=== PATIENT | male | born 1970 | race African-American/Black ===

== ENCOUNTER 2017-08-27 21:24 | Inpatient (IN) | payer OTHER ==
[2017-08-27] MEDS ORDERED: SODIUM CHLORIDE 0.9% 500 ML INFUS.BAG IV ONE (23:08)
[2017-08-27] MEDS ORDERED: ONDANSETRON 4 MG/2 ML VIAL IVPB ONE (23:08)
[2017-08-27] MEDS ORDERED: SODIUM CHLORIDE 1,000 ML IV SCH (23:15)
--- NOTE | 2017-08-27 23:15 | PDOC ---
History of Present Illness - General Chief Complaint: Nasal Bleeding Stated Complaint: SOB/ VOMITTING BLOOD CLOTS Time Seen by Provider: 08/27/17 22:43 History Source: Patient Exam Limitations: No Limitations - History of Present Illness Initial Comments: 08/27/17 23:09 Patient is a 47-year-old male with history HTN, back surgery complaining of shortness of breath 5 days. States his SOB is mainly exceptional, - he gets winded and feels faint when he take a few steps. Also nose bleeding (+) clots x 3 days. Has body pain x 5 days, unable to get out of bed, nausea and some vomiting bloody. Patient states has some diarrhea but stool was dark brown, non bloody. Denies fever, chills, constipation, headache, nasal congestion. Denies any recent illness PMD: Dr. Maldonado PMHX: as above PSOCHX: neg drug, etoh, cig ALL: NKDA GENERAL/CONSTITUTIONAL: [No fever or chills. No weakness. No weight change.] HEAD, EYES, EARS, NOSE AND THROAT: [No change in vision. No ear pain or discharge. No sore throat, (+) nose bleeding] CARDIOVASCULAR: [No chest pain or shortness of breath.] RESPIRATORY: [No cough, wheezing, or hemoptysis.] GASTROINTESTINAL: [No nausea, vomiting, diarrhea or constipation. No rectal bleeding.] GENITOURINARY: [No dysuria, frequency, or change in urination.] MUSCULOSKELETAL: (+) joint or muscle pain. No neck or back pain.] SKIN AND BREASTS: [No rash or easy bruising.] NEUROLOGIC: [No headache, vertigo, loss of consciousness, or loss of sensation.] PSYCHIATRIC: [No depression or anxiety.] ENDOCRINE: [No increased thirst. No abnormal weight change.] HEMATOLOGIC/LYMPHATIC: [No anemia, easy bleeding, or history of blood clots.] ALLERGIC/IMMUNOLOGIC: [No hives or skin allergy. No latex allergy.] GENERAL: [The patient is awake, alert, and fully oriented, in no acute distress. ] HEAD: [Normal with no signs of trauma.] EYES: [Pupils equal, round and reactive to light, extraocular movements intact, sclera icteric, conjunctiva clear.] ENT: [Ears normal, nares patent, oropharynx clear without exudates. Moist mucous membranes.] NECK: [Normal range of motion, supple without lymphadenopathy, JVD, or masses.] LUNGS: [Breath sounds equal, clear to auscultation bilaterally. No wheezes, and no crackles.] HEART: [Regular rate and rhythm, normal S1 and S2 without murmur, rub.] ABDOMEN: [Soft, (+) tenderness in the right upper quad, normoactive bowel sounds. No guarding, no rebound. No masses.] EXTREMITIES: [Normal range of motion, no edema. No clubbing or cyanosis. No cords, erythema, or tenderness.] NEUROLOGICAL: [Cranial nerves II through XII grossly intact. Normal speech, normal gait.] PSYCH: [Normal mood, normal affect.] SKIN: (+) jaundiced, warm, Dry, normal turgor, no rashes or lesions noted.] Past History - Past Medical History Allergies/Adverse Reactions: Allergies Allergy/AdvReac Type Severity Reaction Status Date / Time No Known Allergies Allergy Verified 08/27/17 21:39 Home Medications: Ambulatory Orders NK [No Known Home Medication] 08/28/17 COPD: No HTN: Yes - Suicide/Smoking/Psychosocial Hx Smoking History: Never smoked Have you smoked in the past 12 months: No Information on smoking cessation initiated: No Hx Alcohol Use: No Drug/Substance Use Hx: No Substance Use Type: None *Physical Exam - Vital Signs Last Vital Signs Temp Pulse Resp BP Pulse Ox 99.6 F 98 H 20 124/60 98 08/27/17 21:40 08/27/17 21:40 08/27/17 21:40 08/27/17 21:40 08/27/17 21:40 ED Treatment Course - LABORATORY CBC & Chemistry Diagram: 08/28/17 03:19 08/28/17 01:29 - RADIOLOGY Radiology Studies Ordered: Category Date Time Status CHEST X-RAY PORTABLE* [RAD] Stat Radiology 08/27/17 23:07 Ordered Medical Decision Making - Medical Decision Making 08/27/17 23:22 Patient is a 47-year-old male with history back surgery complaining of shortness of breath 5 days. will get labs incl torp and bnp, hepatic panel cxr, reasses ekg SR rate 97, NAD, (-) ST-T wave changes cxr neg as read by me 08/28/17 02:00 Patient Full Name: ALYSE JONES Patient Accession No: [id number] Patient : 1970 Reason for Exam: RUQ PAIN Referring Physician: Patient Name: KAREN CULLEN THIS IS A PRELIMINARY REPORT FROM [facility] DATE OF SERVICE: 2017-08-28 01:01:42 IMAGES: 43 EXAM: Ultrasound abdomen limited, right upper quadrant and limited abdominal duplex HISTORY: Right upper quadrant pain COMPARISON: None. FINDINGS: Right upper quadrant ultrasound: 2.6 cm echogenic mass in the left hepatic lobe appears to represent a hemangioma. The liver is enlarged at 22.6 cm. There is no intrahepatic biliary duct dilation. Gallstone is noted with gallbladder wall thickening and pericholecystic fluid, highly suspicious for acute cholecystitis The CBD is not dilated and measures3 millimeters in diameter. Right kidney measures 11.6centimeters in length and is unremarkable. The visualized aorta and IVC are normal. Pancreas is partially obscured, but appears normal. Abdominal duplex: The main portal vein demonstrates normal hepatopedal flow. IMPRESSION: Hepatomegaly. Left hepatic lobe hemangioma. High suspicion for acute cholecystitis without biliary duct dilation. THIS DOCUMENT HAS BEEN ELECTRONICALLY SIGNED Chetan Simmons MD 08/28/2017 01:41 EST Myron. Please call Imaging Legal Editor [phone]) with questions. INTERPRETING RADIOLOGIST: Lukasz Simmons MD Electronically Signed: Aug 28, 2017 01:44AM EDT noted to have temp 103 blood cultures ordered by dr. Taylor and given Zosyn 3.375gm IV given 08/28/17 04:03 labs reviewed and noted platels 14, h/h 3.39/17 will transfused platelets and PRBC's, stool occult blood done and (+) protonix 80mg IV and drip at 8mg /hr Case d/w ICU recommend transfuse and tele monitoring. Case d/w with Dr. Taylor recommend ICU admit and heme consult Heme/onc consult called at [phone] 08/28/17 05:37 2nd called for heme/onc Dr. Honey Huitron 08/28/17 05:[address] Huitron agrees with plan thus far, will come to see the patient today. *DC/Admit/Observation/Transfer Diagnosis at time of Disposition: Thrombocytopenia due to blood loss, Anemia, At risk for hyperbilirubinemia, Acute cholecystitis, GI bleed - Discharge Dispostion Condition at time of disposition: Fair Admit: Yes - Referrals - Patient Instructions - Post Discharge Activity
[2017-08-28 01:54] LABS: HEMATOCRIT 11.7 % (35.4-49); MCH 31.8 pg (25.7-33.7); MCHC 33.6 g/dl (32.0-35.9); MEAN CELL VOLUME 94.9 fl (80-96); MEAN PLT VOLUME 10.1 fl (7.5-11.1); PLATELET COUNT 14 K/MM3 (134-434); RBC 1.23 M/mm3 (4.00-5.60); WHITE BLOOD COUNT 10.5 K/mm3 (4.0-10.0)
[2017-08-28 02:08] LABS: INR 1.55 (0.82-1.09); PROTHROMBIN TIME (PATIENT) 17.5 SEC (9.98-11.88)
[2017-08-28 02:10] LABS: ACTIVATED PTT 27.1 SECONDS (26.9-34.4)
[2017-08-28 02:12] LABS: HEMOGLOBIN 3.9 GM/dL (11.7-16.9)
[2017-08-28 02:34] LABS: ALBUMIN 2.9 g/dl (3.4-5.0); ANION GAP 11 (8-16); BILIRUBIN,TOTAL 2.3 mg/dL (0.2-1.0); BLOOD UREA NITROGEN 28 mg/dL (7-18); CALCIUM 7.5 mg/dL (8.5-10.1); CHLORIDE 99 mmol/L (98-107); CO2 22 mmol/L (21-32); CREATININE 1.8 mg/dL (0.7-1.3); GLUCOSE,RANDOM 112 mg/dL (74-106); POTASSIUM 4.2 mmol/L (3.5-5.1); SGOT/AST 27 U/L (15-37); SGPT/ALT 29 U/L (12-78); SODIUM 132 mmol/L (136-145); TOT PROT 6.3 g/dl (6.4-8.2)
[2017-08-28 02:35] LABS: ALK PHOS 59 U/L (45-117); LIPASE 224 U/L (73-393)
[2017-08-28 03:12] LABS: URINE APPEARANCE CLEAR; URINE BILIRUBIN NEGATIVE (NEGATIVE); URINE BLOOD NEGATIVE (NEGATIVE); URINE COLOR AMBER; URINE GLUCOSE (UA) NEGATIVE (NEGATIVE); URINE KETONE NEGATIVE (NEGATIVE); URINE LEUK ESTERASE NEGATIVE (NEGATIVE); URINE NITRITE NEGATIVE (NEGATIVE); URINE PROTEIN NEGATIVE (NEGATIVE); URINE UROBILINOGEN 4.0 E.U/dl mg/dL (0.2-1.0)
[2017-08-28] MEDS ORDERED: PANTOPRAZOLE SODIUM 40 MG VIAL IVPUSH ONE (03:14)
[2017-08-28] MEDS ORDERED: PANTOPRAZOLE SODIUM 80 MG in SODIUM CHLORIDE 100 ML IVPB SCH (03:15)
[2017-08-28] MEDS ORDERED: PANTOPRAZOLE SODIUM 40 MG VIAL ONE (03:20)
[2017-08-28 03:34] LABS: HEMATOCRIT 10.2 % (35.4-49); MCH 31.6 pg (25.7-33.7); MCHC 33.4 g/dl (32.0-35.9); MEAN CELL VOLUME 94.8 fl (80-96); MEAN PLT VOLUME 9.8 fl (7.5-11.1); RBC 1.08 M/mm3 (4.00-5.60); RDW 16.4 % (11.9-15.9); WHITE BLOOD COUNT 10.1 K/mm3 (4.0-10.0)
[2017-08-28 03:38] LABS: HEMOGLOBIN 3.4 GM/dL (11.7-16.9); PLATELET COUNT 12 K/MM3 (134-434)
[2017-08-28 04:11] LABS: URINE APPEARANCE CLEAR; URINE BILIRUBIN NEGATIVE (NEGATIVE); URINE BLOOD NEGATIVE (NEGATIVE); URINE COLOR AMBER; URINE GLUCOSE (UA) NEGATIVE (NEGATIVE); URINE KETONE NEGATIVE (NEGATIVE); URINE LEUK ESTERASE NEGATIVE (NEGATIVE); URINE NITRITE NEGATIVE (NEGATIVE); URINE PROTEIN NEGATIVE (NEGATIVE); URINE UROBILINOGEN 4.0 E.U/dl mg/dL (0.2-1.0)
--- NOTE | 2017-08-28 04:13 | CONSULT ---
Consult - text type - Consultation Consultation Note: [facility] Pt seen and examined in ED CC: weakness, nosebleed HPI: Mr Michelle is a 47 y/o man with hx of back surgery, but otherwise healthy who presents with 4-5 days of progressive weakness, AMES, and nosebleed. He relates being unable to work for months, going to physical therapy 3 x week, but otherwise functional. He takes percocet for pain, could not say home much. He was being worked up for further surgery and had appointment tomorrow for operative planning. States he started feeling weak last week and in last 3-4 days began to have intermittent nose bleed with large clots. Relates some nause and vomiting of some blood (he feels was from nose) and loose stool but no blood in stool nor dark. That bleeding has since subsided but he was so weak and short of breath while walking that he came to ED. He denied LOC, chest pain , dyspnea at rest, melena, hematuria, trauma. In ED pt was normothermic, normotensive, HR 90s, RR 18. Labs were revealing for normochromic normocytic anemia 3.4/10, thrombocytopenia 12, elevated retics (10). WBC was normal and he denied other sick prodrome. Tbili elevated at 2.3, without transaminitis or elevated alk phos. ABD US showed hepatomegaly, normal caliber CBD but GB wall thickening c/f acalculous cholecystitis. Scr 1.8 BUN 28. UA without blood or red cells. PRBC and plts ordered but as yet not transfused. Smear was reviewed by o/n hospitalist who saw > 5 schisto/hpf. Heme was consulted, sent. Inr slightly elevated 1.55. LDH, haptoglobin pending. Transferred to ICU for further care. Blood products hanging. Pmhx: -chronic back pain PSx: Back surgery (NOS) Social: not currently working, denies tob, ETOH, illicits. Family: (P) CBCD WBC 10.1 K/mm3 (4.0-10.0) H 08/28/17 03:19 RBC 1.08 M/mm3 (4.00-5.60) L 08/28/17 03:19 Hgb 3.4 GM/dL (11.7-16.9) L* D 08/28/17 03:19 Hct 10.2 % (35.4-49) L 08/28/17 03:19 MCV 94.8 fl (80-96) 08/28/17 03:19 MCHC 33.4 g/dl (32.0-35.9) 08/28/17 03: RDW 16.4 % (11.9-15.9) H 08/28/17 03:19 Plt Count 12 K/MM3 (134-434) L* 08/28/17 03:19 MPV 9.8 fl (7.5-11.1) 08/28/17 03:19 CMP Sodium 132 mmol/L (136-145) L 08/28/17 01:29 Potassium 4.2 mmol/L (3.5-5.1) 08/28/17 01:29 Chloride 99 mmol/L (98-107) 08/28/17 01:29 Carbon Dioxide 22 mmol/L (21-32) 08/28/17 01:29 Anion Gap 11 (8-16) 08/28/17 01:29 BUN 28 mg/dL (7-18) H 08/28/17 01:29 Creatinine 1.8 mg/dL (0.7-1.3) H 08/28/17 01:29 Creat Clearance w eGFR 40.82 (>60) 08/28/17 01:29 Random Glucose 112 mg/dL (74-106) H 08/28/17 01:29 Calcium 7.5 mg/dL (8.5-10.1) L 08/28/17 01:29 Total Bilirubin 2.3 mg/dL (0.2-1.0) H 08/28/17 01:29 AST 27 U/L (15-37) 08/28/17 01:29 ALT 29 U/L (12-78) 08/28/17 01:29 Alkaline Phosphatase 59 U/L (45-117) 08/28/17 01:29 Total Protein 6.3 g/dl (6.4-8.2) L 08/28/17 01:29 Albumin 2.9 g/dl (3.4-5.0) L 08/28/17 01:29 CARDIAC ENZYMES Creatine Kinase 67 IU/L (39-308) 08/28/17 01:29 Troponin I 0.02 ng/ml (0.00-0.05) 08/28/17 01:29 Urine Test Results Urine Color Jing 08/27/17 03:01 Urine Appearance Clear 08/27/17 03:01 Urine pH 5.0 (5.0-8.0) 08/27/17 03:01 Ur Specific [place] 1.013 (1.001-1.035) 08/27/17 03:01 Urine Protein Negative (NEGATIVE) 08/27/17 03:01 Urine Glucose (UA) Negative (NEGATIVE) 08/27/17 03:01 Urine Ketones Negative (NEGATIVE) 08/27/17 03:01 Urine Blood Negative (NEGATIVE) 08/27/17 03:01 Urine Nitrite Negative (NEGATIVE) 08/27/17 03:01 Urine Bilirubin Negative (NEGATIVE) 08/27/17 03:01 Ur Leukocyte Esterase Negative (NEGATIVE) 08/27/17 03:01 INR, PTT INR 1.55 (0.82-1.09) H 08/28/17 01:29 Vital Signs Temp 103 F H 08/28/17 03:37 Pulse 98 H 08/27/17 21:40 Resp 20 08/27/17 21:40 BP 124/60 08/27/17 21:40 Pulse Ox 98 08/27/17 21:40 Intake & Output 08/27/17 08/27/17 08/28/17 11:59 23:59 11:59 Weight 104.326 kg Other: Height 6 ft 2 in Body Mass Index (BMI) 29.5 Weight Measurement Method Est/Stated by Patient PE: EKG:pending CXR: no infilitrate ABD US report reviewed A/ 47 y/o man without significant medical hx presenting with 4-5 day of weakness , loose stool, intermittent nose bleed found to be profoundly anemic, thrombocytopenic, labs c/w MAHA?hemolysis c/f TTP (+/-HUS) c/b question of acute acalculous cholecystitis, sepsis. P/ - broad workup ongoing - heme to see and review peripheral smear - may need plasma exchange - follow up [id number], hapto, LDH, shiga toxin - 2 x prbc now -would give DDAVP and hold off on transfusing plts unless actively bleeding/not holding crit -Pip/antonieta and vanco for broad coverage - <Benson Tierney - Last Filed: 08/28/17 05:13> - Consultation Consultation Note: Pt seen and examined. Agree with assessment and plan, presumptive diagnosis of TTP, will need further transfusion support, empiric antibiotics, plasmapharesis , steroids. Discussed with manager story, will transfer to tertiary care center for further treatment. Felipe Salazar MD critical care time spent in reviewing chart, evaluating patient and formulating plan 35 min <Felipe Salazar MD - Last Filed: 08/28/17 12:53>
--- NOTE | 2017-08-28 04:15 | PN ---
Teaching Attending Note Name of Resident: Vern Chaves ATTENDING PHYSICIAN STATEMENT I saw and evaluated the patient. I reviewed the resident's note and discussed the case with the resident. I agree with the resident's findings and plan as documented. SUBJECTIVE: 47 yo M with no pmhx who present with 2 week history of shortness of breath. States he had epistaxis, with clots 1 day ago. Also, with associated headache at that time. States during this two week time, he cannot walk greater that "3 steps" to his car. Notes also increased fatigue. Denies any chest pain or pressure. No black or bloody stools. Pt. denied any diarrhea to me, but did state to ED he had one episode. No hemoptysis. OBJECTIVE: Physical: VS: Vital Signs Period Temp Pulse Resp BP Sys/Maria Pulse Ox Last 24 Hr 99.6 F-103 F 98 20 124/60 98 GEN: NAD, Resting in bed, able to speak full sentences HEENT: NCAT, PERRL, Throat without erythema or exudates CARD: RRR S1, S2 RESP: CTAB ABD: BSx4, NTD to palpation, No hepato-splenomegaly EXT: -C/C/E CBCD WBC 10.1 K/mm3 (4.0-10.0) H 08/28/17 03:19 RBC 1.08 M/mm3 (4.00-5.60) L 08/28/17 03:19 Hgb 3.4 GM/dL (11.7-16.9) L* D 08/28/17 03:19 Hct 10.2 % (35.4-49) L 08/28/17 03:19 MCV 94.8 fl (80-96) 08/28/17 03:19 MCHC 33.4 g/dl (32.0-35.9) 08/28/17 03:19 RDW 16.4 % (11.9-15.9) H 08/28/17 03:19 Plt Count 12 K/MM3 (134-434) L* 08/28/17 03:19 MPV 9.8 fl (7.5-11.1) 08/28/17 03:19 CMP Sodium 132 mmol/L (136-145) L 08/28/17 01:29 Potassium 4.2 mmol/L (3.5-5.1) 08/28/17 01:29 Chloride 99 mmol/L (98-107) 08/28/17 01:29 Carbon Dioxide 22 mmol/L (21-32) 08/28/17 01:29 Anion Gap 11 (8-16) 08/28/17 01:29 BUN 28 mg/dL (7-18) H 08/28/17 01:29 Creatinine 1.8 mg/dL (0.7-1.3) H 08/28/17 01:29 Creat Clearance w eGFR 40.82 (>60) 08/28/17 01:29 Random Glucose 112 mg/dL (74-106) H 08/28/17 01:29 Calcium 7.5 mg/dL (8.5-10.1) L 08/28/17 01:29 Total Bilirubin 2.3 mg/dL (0.2-1.0) H 08/28/17 01:29 AST 27 U/L (15-37) 08/28/17 01:29 ALT 29 U/L (12-78) 08/28/17 01:29 Alkaline Phosphatase 59 U/L (45-117) 08/28/17 01:29 Total Protein 6.3 g/dl (6.4-8.2) L 08/28/17 01:29 Albumin 2.9 g/dl (3.4-5.0) L 08/28/17 01:29 CARDIAC ENZYMES Creatine Kinase 67 IU/L (39-308) 08/28/17 01:29 Troponin I 0.02 ng/ml (0.00-0.05) 08/28/17 01:29 Urine Test Results Urine Color Jing 08/27/17 03:01 Urine Appearance Clear 08/27/17 03:01 Urine pH 5.0 (5.0-8.0) 08/27/17 03:01 Ur Specific [place] 1.013 (1.001-1.035) 08/27/17 03:01 Urine Protein Negative (NEGATIVE) 08/27/17 03:01 Urine Glucose (UA) Negative (NEGATIVE) 08/27/17 03:01 Urine Ketones Negative (NEGATIVE) 08/27/17 03:01 Urine Blood Negative (NEGATIVE) 08/27/17 03:01 Urine Nitrite Negative (NEGATIVE) 08/27/17 03:01 Urine Bilirubin Negative (NEGATIVE) 08/27/17 03:01 Ur Leukocyte Esterase Negative (NEGATIVE) 08/27/17 03:01 ABD US- Acute Choleycystitis CXR: No acute process ASSESSMENT AND PLAN: 47 yo M with no pmhx who present with 2 week history of shortness of breath, found to be severely anemic, with fever and severe thrombocytopenia, being admitted for micorangiopathic hemolytic anemia 1.) Dyspnea- Due to Severe Anemia/MAHA - DDx: TTP (fever, thrombocytopenia, ARF, Anemia, ?headache)vs. DIC/HUS - STAT LDH, HAPTO, Dimer, Retic, CoomFibrinogen, [id number] - Marley Cx - PRBC/1 U plts being transfused- due to bleeding (+ Occult) - STAT heme consult- Paged - Smear - LA - Type - D. Bili - Shiga Toxin 2.) Sepsis - Most likely due to acute Choley. - Marley Cx - LA - IVF - NPO - Vanco/Zosyn - Once stable sx. consult - ID consult 3.) Anemia - Postive Occult - Refused rectal - Protonix - GI consult 4.) ARF - U lytes - ? TTP - Renally dose all meds - IVF CC Time: 60 Minutes Admit to ICU
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
[2017-08-28 04:23] LABS: ANISOCYTOSIS 3+; CORRECTED WBC 9.05 K/mm3; MACROCYTOSIS 0; PLATELET ESTIMATE DECREASED; TARGET CELLS 1+; TEAR DROP CELLS 1+
[2017-08-28] MEDS ORDERED: PIPERACILLIN/TAZOB 3.375 GM 50 ML IVPB ONE (04:33)
[2017-08-28] MEDS ORDERED: SODIUM CHLORIDE 1,000 ML IV SCH (06:00)
[2017-08-28] MEDS ORDERED: VANCOMYCIN 1 GRAM (PRE-DOCKED) 1,000 MG/250 ML BAG IVPB ONE ×2 (06:05→06:17)
[2017-08-28] MEDS ORDERED: PIPERACILLIN/TAZOB 3.375 GM 3.375 GM/50 ML BAG IVPB ONE (06:17)
[2017-08-28] MEDS ORDERED: ACETAMINOPHEN 1000 MG/100 ML VIAL (NON FORMULARY) IVPB PRN (08:41)
[2017-08-28 09:39] VITALS: BMI 29.2
[2017-08-28] MEDS ORDERED: MUPIROCIN 2% TOPICAL OINTMENT FOR DECOLONIZATION NS SCH (10:00)
--- NOTE | 2017-08-28 10:47 | CONSULT ---
Consult Consult Specialty:: Hematology-Oncology Referred by:: Dr Heidi Urbina Reason for Consultation:: anemia/thrombocytopenia - History of Present Illness Chief Complaint: SOB X 5 days History of Present Illness: 47 y/o male w unremarkable PMH ( Htn) who felt vaguely ill X several weeks w occ chills / weakness but began to have SOB/AMES X days w lightheadedness , increased weakness , transient visual blurriness , arthralgias , epistaxis , few episodes of N&V ( few blood clots) and loose brown stool.Pt on presentation found to have Hgb 3 , plates 12K WBC 10K w mainly PMN's/Lymphs ,Retic 10 ,LDH > 1000, Bili 2.8, mild increase BUN/creat. Preipheral smear shows 2-3 + schistocytes , high nRBC's , large platelets(low) , WBC's unremarkable except fow a few immature WBC's .UA w + urobilinogen;[place] direct neg. CT a/p showed thickened GB wall w pericystic fluid ? cholecystitis : US w possible hemangioma liver which is sl. enlarged. CXR neg and EKG w SR. Pt c/o weakness, arthralgias , occ mild OVALLES's and occ visual disturbance .He denies chest pain/ anginal sx .He has mild epigastric discomfort. - History Source Limitations to Obtaining History: No Limitations - Past Medical History [employer]: Yes: Other (visual disturbance , OVALLES's) Cardio/Vascular: Yes: HTN Pulmonary: No: Asthma, Bronchitis, Cancer, COPD, O2 Dependent, Pneumonia, Previously Intubated, Pulmonary Embolus, Pulmonary Fibrosis, Sleep Apnea, Other Gastrointestinal: No: Ascites, Cancer, Constipation, Crohn's Disease, Diverticulitis, Diverticulosis, Esophageal Varices, Gastritis, GERD, GI Bleed, Hemorrhoids, Hiatal Hernia, Inflamatory Bowel Disease, Irritable Bowel Disease, Pancreatitis, Peptic Ulcer Disease, Ulcerative Colitis, Other Hepatobiliary: No: Cirrhosis, Cholelithiasis, Cholecystitis, Choledocholithiasis , Hepatitis A, Hepatitis B, Hepatitis C, Other Renal/: No: Renal Failure, Renal Inusuff, BPH, Cancer, Hematuria, Hemodialysis , Neurogenic Bladder, Renal Calculi, UTI, Other Heme/Onc: No: Anemia, B12 Deficiency, Bleeding Disorder, Cancer, Current Chemotherapy, Current Radiation Therapy, Hemochromatosis, Hypercoaguable State, Myeloproliferative Synd, Sickle Cell Disease, Sickle Cell Trait, Thrombocytopenia, Other Infectious Disease: No: AIDS, C-Diff, Herpes Zoster, HIV, MRSA, STD's, Tuberculosis, VREF, Other Psych: No: Addictions, Anxiety, Bipolar, Depression, Panic, Psychosis, Schizophrenia, Other Musculoskeletal: Yes: Other (arthralgias) Rheumatology: No: Fibromyalgia, Gout, Lupus, Rheumatoid Arthritis, Sarcoidosis, Vasculitis, Other ENT: No: Allergic Rhinitis, Sinusitis, Other Endocrine: No: [place]'s Disease, [place]'s Disease, Diabetes Insipidus, Diabetes Mellitus, Hyperparathyroidism, Hyperthyroidism, Hypothyroidism, Osteopenia, SIADH, Other Dermatology: No: Basal Cell, Cellulitis, Eczema, Melanoma, Psoriasis, Squamous Cell, Other - Past Surgical History Past Surgical History: No: None, AAA Repair, AICD, Amputation, Appendectomy, Arthrosocopy, AV Fistula/Graft, Bariatric Surgery, Breast Biopsy, Bypass, CABG, Carotid Endarterectomy, Cataract Removal, Cholecystectomy, Colectomy, Colonoscopy, Colostomy, Craniotomy, , Cystectomy, Hernia Repair, Hysterectomy, Ileal Conduit, Ileosotomy, Joint Replacement, Kidney Transplant, Laminectomy, Liver Transplant, Mastectomy, Nephrectomy, Oopherectomy, Orchiectomy, Permanent Pacemaker, Prostatectomy, Splenectomy, Stent, Thoracotomy , TURP, Tonsillectomy, Tubal Ligation, Upper Endoscopy, Valve Replacement, Vasectomy, Vein Stripping/Ligation - Alcohol/Substance Use Hx Alcohol Use: No - Smoking History Smoking history: Never smoked Have you smoked in the past 12 months: No Aproximately how many cigarettes per day: 0 Home Medications - Allergies Allergies/Adverse Reactions: Allergies Allergy/AdvReac Type Severity Reaction Status Date / Time No Known Allergies Allergy Verified 08/27/17 21:39 - Home Medications Home Medications: Ambulatory Orders NK [No Known Home Medication] 08/28/17 Review of Systems - Review of Systems Constitutional: reports: Chills, Lethargy, Loss of Appetite, Weakness Eyes: reports: Blurred Vision HENT: reports: Epistaxis Neck: reports: No Symptoms Cardiovascular: denies: No Symptoms, Chest Pain, Edema, Palpitations, Shortness of Breath, Other Respiratory: reports: SOB, SOB on Exertion Gastrointestinal: reports: Abdominal Pain, Diarrhea, Nausea, Vomiting, Vomiting Blood, Other (vomiting likeky swallowed blood) Genitourinary: reports: No Symptoms Musculoskeletal: reports: Joint Pain Integumentary: reports: No Symptoms Neurological: reports: Dizziness, Headache Endocrine: reports: No Symptoms Hematology/Lymphatic: reports: Excessive Bleeding Psychiatric: denies: No Symptoms, Altered Sleep Pattern, Anxiety, Depression, Hallucinations, Panic, Paranoia, Suicidal, Other Physical Exam Vital Signs: Vital Signs Temperature 100.1 F H 08/28/17 08:30 Pulse Rate 90 08/28/17 08:30 Respiratory Rate 18 08/28/17 08:30 Blood Pressure 106/64 08/28/17 08:30 O2 Sat by Pulse Oximetry (%) 95 08/28/17 08:30 Constitutional: Yes: Well Nourished, No Distress, Calm Eyes: Yes: WNL, Conjunctiva Clear, EOM Intact HENT: Yes: WNL, Atraumatic, Normocephalic Neck: Yes: WNL, Supple, Trachea Midline Cardiovascular: Yes: WNL, Regular Rate and Rhythm Respiratory: Yes: WNL, Regular, CTA Bilaterally Gastrointestinal: Yes: WNL, Normal Bowel Sounds, Soft, Tenderness (epigastrium, no rebound tenderness) Musculoskeletal: Yes: WNL, Other Extremities: Yes: WNL Edema: No Peripheral Pulses WNL: Yes Integumentary: Yes: WNL Neurological: Yes: WNL, Alert, Oriented ...Motor Strength: WNL Psychiatric: Yes: WNL Labs: CBC, BMP 08/28/17 03:19 08/28/17 01:29 Problem List - Problems (1) Microangiopathic hemolytic anemia Code(s): D59.4 - OTHER NONAUTOIMMUNE HEMOLYTIC ANEMIAS (2) Thrombotic thrombocytopenic purpura (TTP) Code(s): M31.1 - THROMBOTIC MICROANGIOPATHY (3) Cholecystitis without cholelithiasis Code(s): K81.9 - CHOLECYSTITIS, UNSPECIFIED Assessment/Plan 47 y/o male w anemia and thrombocytopenia most c/w TTP presentation ( microangiopathic hemolysis) but other similar processes to be ruled out . Pt transfused PC's and started on empiric ab's for possibility of sepsis in the differential . Suggest pt be transferred to [facility] ([facility]) for Shiley catheter and urgent plasmapheresis and further hematologic w/u Doubt aleukemic leukemia but may have to be ruled out w BM exam ; [id number] sent .
[2017-08-28 11:20] LABS: MCH 31.2 pg (25.7-33.7); MCHC 34.7 g/dl (32.0-35.9); MEAN CELL VOLUME 90.1 fl (80-96); MEAN PLT VOLUME 7.9 fl (7.5-11.1)
[2017-08-28 11:26] LABS: HEMOGLOBIN 5.3 GM/dL (11.7-16.9); PLATELET COUNT 35 K/MM3 (134-434)
[2017-08-28 11:27] LABS: HEMATOCRIT 15.3 % (35.4-49)
[2017-08-28 11:41] LABS: ALBUMIN 2.6 g/dl (3.4-5.0); ALK PHOS 62 U/L (45-117); ANION GAP 9 (8-16); BILIRUBIN,TOTAL 4.3 mg/dL (0.2-1.0); BLOOD UREA NITROGEN 25 mg/dL (7-18); CALCIUM 7.1 mg/dL (8.5-10.1); CHLORIDE 102 mmol/L (98-107); CO2 22 mmol/L (21-32); CREATININE 1.5 mg/dL (0.7-1.3); GLUCOSE,RANDOM 104 mg/dL (74-106); MAGNESIUM 2.2 mg/dL (1.8-2.4); PHOSPHOROUS 2.9 mg/dL (2.5-4.9); POTASSIUM 4.1 mmol/L (3.5-5.1); SGOT/AST 27 U/L (15-37); SGPT/ALT 27 U/L (12-78); SODIUM 133 mmol/L (136-145); TOT PROT 5.7 g/dl (6.4-8.2)
--- NOTE | 2017-08-28 11:51 | CONSULT ---
Consult - text type - Consultation Consultation Note: Renal Consult for CÉSAR This is a 47 year old gentleman with PMhx of Hypertension who presented with progressive weakness and found to have severe anemia with suspision for TTP with Cr of 1.8. Pt reports progressive symptoms over 1 week. + Nose bleeds. Denies any bloody or dark stools. Making urine but denies any bloody urine. No flank pain, no nsaid use, no recent contrast exposure. Denies any sob at rest, no chest pain, no fever, chills. No recent Abx use. No OTC meds. No diarrhea. PMhx: as above Allergies: NDKA Family hx: NC Social hx: No T/A/D ROS: as per HPI, all other pertinent ros negative Home Medications Medication Instructions Recorded Antihypertensive Med 08/28/17 Vital Signs Temperature 99.0 F 08/28/17 10:00 Pulse Rate 82 08/28/17 10:00 Respiratory Rate 20 08/28/17 10:00 Blood Pressure 118/89 08/28/17 10:00 O2 Sat by Pulse Oximetry (%) 95 08/28/17 08:30 Intake & Output 08/25/17 08/26/17 08/27/17 08/28/17 22:59 22:59 23:59 23:59 Output Total 300 Balance -300 Weight 103.419 kg NAD on NC awake and alert RRR, no M/R CTA, no rales or wheeze soft , + mild tenderness LUQ No bladder distension No LE edema CBC, BMP 08/28/17 10:45 Laboratory Tests 08/28/17 08/28/17 08/28/17 01:29 01:29 01:29 MCV 94.9 Schistocytes 3+ Haptoglobin Sodium 132 L Potassium 4.2 Chloride 99 Carbon Dioxide 22 Anion Gap 11 BUN 28 H Creatinine 1.8 H Calcium 7.5 L Total Bilirubin 2.3 H Direct Bilirubin LD Total B-Natriuretic Peptide 436.02 H Albumin 2.9 L Urine Protein Urine Blood Stool Occult Blood 08/28/17 08/28/17 08/28/17 01:29 01:29 02:38 MCV Schistocytes Haptoglobin Sodium Potassium Chloride Carbon Dioxide Anion Gap BUN Creatinine Calcium Total Bilirubin Direct Bilirubin 1.1 H LD Total 1101 H B-Natriuretic Peptide Albumin Urine Protein Urine Blood Stool Occult Blood Positive 08/28/17 08/28/17 03:19 03:54 MCV Schistocytes Haptoglobin Pending Sodium Potassium Chloride Carbon Dioxide Anion Gap BUN Creatinine Calcium Total Bilirubin Direct Bilirubin LD Total B-Natriuretic Peptide Albumin Urine Protein Negative Urine Blood Negative Stool Occult Blood Current Medications Acetaminophen (Ofirmev Injection -) 1,000 mg IVPB Q6H PRN PRN Reason: FEVER Last Admin: 08/28/17 08:30 Dose: 1,000 mg Chlorhexidine Gluconate (Hibiclens For Decolonization -) 1 applic TP HS DIANE Pantoprazole Sodium 80 mg/ (Sodium Chloride) 100 mls @ 10 mls/hr IVPB Q10H DIANE PRN Reason: 8 MG/HR Last Admin: 08/28/17 03:36 Dose: 10 mls/hr Sodium Chloride (Normal Saline -) 1,000 mls @ 100 mls/hr IV ASDIR DIANE Last Admin: 08/28/17 09:49 Dose: 100 mls/hr Piperacillin/Tazobactam/Dextrose (Zosyn 2.25gm Ivpb (Premix)) 2.25 gm in 50 mls @ 100 mls/hr IVPB ONCE ONE Stop: 08/28/17 12:59 Methylprednisolone Sodium Succinate (Solu-Medrol -) 125 mg IVPB Q6H DIANE Mupirocin (Bactroban Ointment (For Decolonization) -) 1 applic NS BID DIANE Stop: 09/02/17 09:59 Last Admin: 08/28/17 09:50 Dose: 1 applic A/P 47 year old gentleman with PMhx of Hypertension who presented with progressive weakness and found to have severe anemia with suspision for TTP with Cr of 1.8. #Acute Renal Injury in setting of MAHA (likely TTP) and severe Anemia Pt with + Schizocytes/High LDH suggestive of MAHA Renal failiure is not so severe so less likely HUS check C3, C4, CH50, [id number] Plasmapharesis as per Heme Start Methyprednisolne 125mg Q6h Trend CBC, Renal function BID no acute indication for TEMPLE MARKER continue isotonic saline for now with monitoring of volume status strict I and O Dose all meds for CrCl less then 45 Pt awaiting possible transfer to [facility] Thank you Will follow Gorge Hennessy DO
[2017-08-28 12:11] VITALS: PULSE 77
[2017-08-28] MEDS ORDERED: PIPERACILLIN/TAZOB 2.25 GM 2.25 GM/50 ML BAG IVPB ONE (12:30)
[2017-08-28 12:32] LABS: ANISOCYTOSIS 1+
[2017-08-28 12:33] LABS: CORRECTED WBC 10.68 K/mm3; MACROCYTOSIS 1+; WHITE BLOOD COUNT 14.2 K/mm3 (4.0-10.0)
--- NOTE | 2017-08-28 12:45 | PN ---
Teaching Attending Note Name of Resident: Raquel Gomez ATTENDING PHYSICIAN STATEMENT I saw and evaluated the patient. I reviewed the resident's note and discussed the case with the resident. I agree with the resident's findings and plan as documented. SUBJECTIVE:c/o lethargy and generalized weakness, states some improvement since arrival. been having SOB at even minimal activity and developed some epistaxis a day which has stopped prior to arrival. also noted some dark urine during this time. does note he has intermittent abdominal pain but can not relate if to eating or not. denies CP, fever, chills, N/V/C/D denies intermittent mucosal bleeding or rashes OBJECTIVE: Last Vital Signs Temp Pulse Resp BP Pulse Ox 99.0 F 77 20 116/77 95 08/28/17 10:00 08/28/17 12:00 08/28/17 12:00 08/28/17 12:00 08/28/17 08:30 Intake & Output 08/25/17 08/26/17 08/27/17 08/28/17 22:59 22:59 23:59 23:59 Output Total 300 Balance -300 Weight 228 lb General lethargic, diaphoretic CV S1 S2 tachy Lungs CTA B/L no wheezing/rales/rhonchi Abdomen soft diffusely tender worse in RUQ. slightly distended. unable to palpate liver edge due to pain Extremities no pedal edema, no rashes ASSESSMENT AND PLAN: 47yo M with PMH HTN and disc herniation presentated to the ER with dyspnea and fatigue 1. MAHA- likely TTP but can not r/o DIC. will need emergent plasmapharesis. received 1 unit Platelets. started on steroids. hematology on board. agrees would benefit from tertiary care center. [id number] 2. Symptomatic anemia- s/p 2 units PRBC with appropriate response. will transfuse 2 more units PRBC. frequent blood draws and monitoring. PPI while on steroids 3. Sepsis due to acute cholecystitis- Tm103. on Vanco/zosyn day 2. will liekly require cholecystectomy. will need cholcystectomy however too sick for surgery at this time. will consult surgery for evaluation if pt requires drainage in the interim. f/u cx 4. CÉSAR- from dehydration vs fits with TTP. improving. IVF. neprhology on board. 5.MICU monitoring, Called to [facility] for transfer for plasmapharesis. The care of this patient involved high complexity decision making to prevent further life threatening deterioration of the patient's condition and/or to evaluate & treat vital organ system(s) failure or risk of failure. 45 minutes
[2017-08-28 13:47] VITALS: BP 115/77; TEMP 98.7
--- NOTE | 2017-08-28 14:35 | PN ---
Physical Exam: SUBJECTIVE: Briefly pt is a 47yo M with only history of HTN and "back surgery" 5 -10 years ago who started to have malaise about 4 days ago. Pt tried to eat and rest, however he noted increasing fatigue and AMES. At this time pt started to develop extended epistaxis and elicited a rather long clot. Pt came to the emergency department for further workup and was found to have a hemoglobin of 3.5, a platelet count of 12,000, and a fever of 103*F. Pt was admitted to the ICU with suspected TTP vs. DIC. He received 2U PRBC, NS @100cc/hr to support his hypotensive pressure and labs were sent regarding LDH, fibrinogen, haptoglobin, D-dimer, coag studies, and a peripheral blood smear. Currently pt's only complaint is of a frontal headache he attributes to the dried blood in his nare. Pt reports lightheadedness with sitting up, but denies any overt signs of bleeding at this time. Pt denies SOB, CP/discomfort, palpitations, visual changes, diarrhea, BRBPR OBJECTIVE: Vital Signs Period Temp Pulse Resp BP Sys/Maria Pulse Ox Last 24 Hr 98.7 F-103 F 77-98 18-22 105-124/60-89 95-100 GENERAL: NAD, awake, alert and oriented x3, laying in bed HEENT: NC/AT, sclera anicteric, EOMI, VICKI, L nare dried blood noticed with no active bleeds or clots seen, normal structures of mouth, no gingival bleeding noted, dry mucosa LUNGS: CTA bilaterally, no wheezes, no crackles, no accessory muscle use. HEART: Regular rate and rhythm, S1, S2 without murmur, rub or gallop. ABDOMEN: Soft, nontender, nondistended, normoactive bowel sounds, no guarding, negative Lerma's test, no hepatomegaly, no masses. EXTREMITIES: 2+ DP pulses, warm, well-perfused, no edema, cap refill <2 sec NEUROLOGICAL: Cranial nerves II through XII grossly intact. Normal speech. Strength 5/5 grossly throughout extremities, sensation intact throughout, gait not observed PSYCH: Normal mood, normal affect. SKIN: Warm, dry, normal turgor, no rashes or lesions noted on LE or body, tattoos noted on b/l extremities Laboratory Last Values WBC 14.2 K/mm3 (4.0-10.0) H D 08/28/17 10:45 Corrected WBC (auto) 10.68 K/mm3 08/28/17 10:45 RBC 1.70 M/mm3 (4.00-5.60) L D 08/28/17 10:45 Hgb 5.3 GM/dL (11.7-16.9) L* D 08/28/17 10:45 Hct 15.3 % (35.4-49) L D 08/28/17 10:45 MCV 90.1 fl (80-96) 08/28/17 10:45 MCH 31.2 pg (25.7-33.7) 08/28/17 10:45 MCHC 34.7 g/dl (32.0-35.9) 08/28/17 10:45 RDW 16.0 % (11.9-15.9) H 08/28/17 10:45 Plt Count 35 K/MM3 (134-434) L* D 08/28/17 10:45 MPV 7.9 fl (7.5-11.1) D 08/28/17 10:45 Total Counted 100 08/28/17 10:45 Neutrophils % No Result Required. 08/28/17 10:45 Neutrophils % (Manual) 72.0 % (42.8-82.8) D 08/28/17 10:45 Band Neutrophils % 0.0 % 08/28/17 01:29 Lymphocytes % No Result Required. 08/28/17 10:45 Lymphocytes % (Manual) 19.0 % (8-40) D 08/28/17 10:45 Monocytes % (Manual) 8 % (3.8-10.2) 08/28/17 10:45 Eosinophils % (Manual) 0.0 % (0-4.5) 08/28/17 01:29 Basophils % (Manual) 0.0 % (0-2.0) 08/28/17 01:29 Myelocytes % (Man) 0 % (0-2) 08/28/17 01:29 Promyelocytes % (Man) 0 % (0-2) 08/28/17 01:29 Blast Cells % (Manual) 0 % (0-0) 08/28/17 01:29 Nucleated RBC % 33 % (0-0) H* 08/28/17 10:45 Metamyelocytes 1 % (0-2) 08/28/17 01:29 Hypochromia 3+ 08/28/17 01:29 Platelet Estimate Decreased 08/28/17 01:29 Polychromasia 1+ 08/28/17 10:45 Poikilocytosis 1+ 08/28/17 01:29 Basophilic Stippling 2+ 08/28/17 01:29 Anisocytosis 1+ 08/28/17 10:45 Microcytosis 1+ 08/28/17 10:45 Macrocytosis 1+ 08/28/17 10:45 Target Cells 1+ 08/28/17 01:29 Tear Drop Cells 1+ 08/28/17 01:29 Fragmented RBCs 1+ 08/28/17 01:29 Schistocytes 3+ 08/28/17 01:29 Retic Count 10.50 % (0.5-1.5) H* 08/28/17 03:19 PT with INR 17.50 SEC (9.98-11.88) H 08/28/17 01:29 INR 1.55 (0.82-1.09) H 08/28/17 01:29 PTT (Actin FS) 27.1 SECONDS (26.9-34.4) 08/28/17 01:29 Fibrinogen 470.0 mg/dL (238-498) 08/28/17 01:29 D-Dimer 2377 ng/ml (0-500) H 08/28/17 03:21 Sodium 133 mmol/L (136-145) L 08/28/17 10:45 Potassium 4.1 mmol/L (3.5-5.1) 08/28/17 10:45 Chloride 102 mmol/L (98-107) 08/28/17 10:45 Carbon Dioxide 22 mmol/L (21-32) 08/28/17 10:45 Anion Gap 9 (8-16) 08/28/17 10:45 BUN 25 mg/dL (7-18) H 08/28/17 10:45 Creatinine 1.5 mg/dL (0.7-1.3) H 08/28/17 10:45 Creat Clearance w eGFR 50.38 (>60) 08/28/17 10:45 Random Glucose 104 mg/dL (74-106) 08/28/17 10:45 Lactic Acid 1.3 mmol/L (0.0-2.0) 08/28/17 10:45 Calcium 7.1 mg/dL (8.5-10.1) L 08/28/17 10:45 Phosphorus 2.9 mg/dL (2.5-4.9) 08/28/17 10:45 Magnesium 2.2 mg/dL (1.8-2.4) 08/28/17 10:45 Total Bilirubin 4.3 mg/dL (0.2-1.0) H D 08/28/17 10:45 Direct Bilirubin 1.1 mg/dL (0.0-0.2) H 08/28/17 01:29 AST 27 U/L (15-37) 08/28/17 10:45 ALT 27 U/L (12-78) 08/28/17 10:45 Alkaline Phosphatase 62 U/L (45-117) 08/28/17 10:45 LD Total 1101 U/L (87-241) H 08/28/17 01:29 Creatine Kinase 67 IU/L (39-308) 08/28/17 01:29 Troponin I 0.02 ng/ml (0.00-0.05) 08/28/17 01:29 B-Natriuretic Peptide 436.02 pg/ml (5-125) H 08/28/17 01:29 Total Protein 5.7 g/dl (6.4-8.2) L 08/28/17 10:45 Albumin 2.6 g/dl (3.4-5.0) L 08/28/17 10:45 Lipase 224 U/L (73-393) 08/28/17 01:29 TSH 5.72 uIU/ml (0.358-3.74) H 08/28/17 10:45 Urine Color Jing 08/28/17 03:54 Urine Appearance Clear 08/28/17 03:54 Urine pH 5.0 (5.0-8.0) 08/28/17 03:54 Ur Specific [place] 1.013 (1.001-1.035) 08/28/17 03:54 Urine Protein Negative (NEGATIVE) 08/28/17 03:54 Urine Glucose (UA) Negative (NEGATIVE) 08/28/17 03:54 Urine Ketones Negative (NEGATIVE) 08/28/17 03:54 Urine Blood Negative (NEGATIVE) 08/28/17 03:54 Urine Nitrite Negative (NEGATIVE) 08/28/17 03:54 Urine Bilirubin Negative (NEGATIVE) 08/28/17 03:54 Urine Urobilinogen 4.0 e.u/dl mg/dL (0.2-1.0) 08/28/17 03:54 Ur Leukocyte Esterase Negative (NEGATIVE) 08/28/17 03:54 Stool Occult Blood Positive (NEGATIVE) 08/28/17 02:38 Acetaminophen <2.000 ug/mL 08/28/17 03:21 HIV 1&2 Antibody Screen Negative 08/28/17 03:19 HIV P24 Antigen Negative 08/28/17 03:19 Blood Type A POSITIVE 08/28/17 02:45 Antibody Screen Negative 08/28/17 01:29 Direct Antiglob Test Negative (NEGATIVE) 08/28/17 03:35 Crossmatch See Detail 08/28/17 03:35 Active Medications Generic Name Dose Route Start Last Admin Trade Name Joseq PRN Reason Stop Dose Admin Acetaminophen 1,000 mg 08/28/17 08:41 08/28/17 08:30 Ofirmev Injection - IVPB 1,000 mg Q6H PRN Administration FEVER Chlorhexidine Gluconate 1 applic 08/28/17 22:00 Hibiclens For Decolonization - TP HS DIANE Pantoprazole Sodium 80 mg/ 100 mls @ 10 mls/hr 08/28/17 03:15 08/28/17 03:36 Sodium Chloride IVPB 10 mls/hr Q10H DIANE Administration 8 MG/HR Sodium Chloride 1,000 mls @ 100 mls/hr 08/28/17 06:00 08/28/17 09:49 Normal Saline - IV 100 mls/hr ASDIR DIANE Administration Methylprednisolone Sodium Succinate 125 mg 08/28/17 15:00 Solu-Medrol - IVPB Q6H-IV DIANE Mupirocin 1 applic 08/28/17 10:00 08/28/17 09:50 Bactroban Ointment (For Decolonization) - NS 09/02/17 09:59 1 applic BID DIANE Administration ASSESSMENT/PLAN: Neuro: Neurologically intact Respiratory: No respiratory distress Cardiovascular: Hypotension: Currently 117/69 this morning Never required pressors Continue to hold home antihypertensives IVF bolus as needed; patient currently looks dry Hematology TTP vs (less likely) DIC --Most likely TTP in setting of hemolytic anemia, thrombocytopenia, normal fibrinogen, and slightly increased coags and d-dimer --Peripheral smear showing schistocytes >5 per HPF --Will need plasma exchange for treatment --Dr. Pires on case --Suspects TTP can be a highly likely differential --Would rather transfer to [facility] where his colleagues are better specialized for care --Already received 2 units; Ordered 2U PRBC --Ordered 2 FFP --CBC to recheck if prior 2 units responded appropriately --Solumedrol 125mg q6h --Thrombocytopenic down to 12,000 --Pt being transfused with 1 of platelets already --Will discuss possibility of DDAVP in addition Renal Acute kidney injury --Cr 2.8 currently --Unknown baseline --Continue to hydrate --Dr. Hennessy on case; ordered C3, C4, CH50 FEN: Fluids: NS@100cc/hr; bolus as needed due to dry clinical exam Electrolyte abnormalities: Hyponatremic 133; mild/continue to monitor PPX: DVT - SCDs in lieu of thrombocytopenia and Hgb GI - Protonix gtt Dispo: Continue ICU monitoring; awaiting transfer acceptance at [facility] Case discussed with Dr. Martin Moreira, DO - IM PGY-1 Visit type - Emergency Visit Emergency Visit: No - New Patient This patient is new to me today: Yes Date on this admission: 08/28/17 - Critical Care Critical Care patient: Yes Total Critical Care Time (in minutes): 38 Critical Care Statement: The care of this patient involved high complexity decision making to prevent further life threatening deterioration of the patient 's condition and/or to evaluate & treat vital organ system(s) failure or risk of failure.
[2017-08-28] MEDS ORDERED: methylPREDNISolone NA SUCC 125 MG/2 ML VIAL IVPB SCH (15:00)
--- NOTE | 2017-08-28 15:00 | CON.GI ---
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 , OVALLES's) Cardio/Vascular: Yes: HTN Pulmonary: No: Asthma, Bronchitis, Cancer, COPD, O2 Dependent, Pneumonia, Previously Intubated, Pulmonary Embolus, Pulmonary Fibrosis, Sleep Apnea, Other Gastrointestinal: No: Ascites, Cancer, Constipation, Crohn's Disease, Diverticulitis, Diverticulosis, Esophageal Varices, Gastritis, GERD, GI Bleed, Hemorrhoids, Hiatal Hernia, Inflamatory Bowel Disease, Irritable Bowel Disease, Pancreatitis, Peptic Ulcer Disease, Ulcerative Colitis, Other Hepatobiliary: No: Cirrhosis, Cholelithiasis, Cholecystitis, Choledocholithiasis , Hepatitis A, Hepatitis B, Hepatitis C, Other Renal/: No: Renal Failure, Renal Inusuff, BPH, Cancer, Hematuria, Hemodialysis , Neurogenic Bladder, Renal Calculi, UTI, Other Infectious Disease: No: AIDS, C-Diff, Herpes Zoster, HIV, MRSA, STD's, Tuberculosis, VREF, Other Psych: No: Addictions, Anxiety, Bipolar, Depression, Panic, Psychosis, Schizophrenia, Other Musculoskeletal: Yes: Other (arthralgias) Rheumatology: No: Fibromyalgia, Gout, Lupus, Rheumatoid Arthritis, Sarcoidosis, Vasculitis, Other ENT: No: Allergic Rhinitis, Sinusitis, Other Endocrine: No: Garvin's Disease, Lorna's Disease, Diabetes Insipidus, Diabetes Mellitus, Hyperparathyroidism, Hyperthyroidism, Hypothyroidism, Osteopenia, SIADH, Other Dermatology: No: Basal Cell, Cellulitis, Eczema, Melanoma, Psoriasis, Squamous Cell, Other - Past Surgical History Past Surgical History: No: None, AAA Repair, AICD, Amputation, Appendectomy, Arthrosocopy, AV Fistula/Graft, Bariatric Surgery, Breast Biopsy, Bypass, CABG, Carotid Endarterectomy, Cataract Removal, Cholecystectomy, Colectomy, Colonoscopy, Colostomy, Craniotomy, , Cystectomy, Hernia Repair, Hysterectomy, Ileal Conduit, Ileosotomy, Joint Replacement, Kidney Transplant, Laminectomy, Liver Transplant, Mastectomy, Nephrectomy, Oopherectomy, Orchiectomy, Permanent Pacemaker, Prostatectomy, Splenectomy, Stent, Thoracotomy , TURP, Tonsillectomy, Tubal Ligation, Upper Endoscopy, Valve Replacement, Vasectomy, Vein Stripping/Ligation - Alcohol/Substance Use Hx Alcohol Use: No - Smoking History Smoking history: Never smoked Have you smoked in the past 12 months: No Aproximately how many cigarettes per day: 0 Home Medications - Allergies Allergies/Adverse Reactions: Allergies Allergy/AdvReac Type Severity Reaction Status Date / Time No Known Allergies Allergy Verified 08/27/17 21:39 - Home Medications Home Medications: Ambulatory Orders NK [No Known Home Medication] 08/28/17 Physical Exam-GI Vital Signs: Vital Signs Temperature 98.7 F 08/28/17 13:11 Pulse Rate 77 08/28/17 13:11 Respiratory Rate 22 08/28/17 13:11 Blood Pressure 115/77 08/28/17 13:11 O2 Sat by Pulse Oximetry (%) 95 08/28/17 08:30 Imaging - Results Cat Scan: Report Reviewed Ultrasound: Report Reviewed Problem List - Problems (1) Intravascular hemolysis Code(s): CAO2673 - (2) Acute cholecystitis Code(s): K81.0 - ACUTE CHOLECYSTITIS (3) Microangiopathic hemolytic anemia Code(s): D59.4 - OTHER NONAUTOIMMUNE HEMOLYTIC ANEMIAS (4) Thrombotic thrombocytopenic purpura (TTP) Code(s): M31.1 - THROMBOTIC MICROANGIOPATHY
--- NOTE | 2017-08-28 16:02 | EKG ---
Test Reason : Blood Pressure : / mmHG Vent. Rate : 097 BPM Atrial Rate : 097 BPM P-R Int : 152 ms QRS Dur : 080 ms QT Int : 372 ms P-R-T Axes : 064 054 039 degrees QTc Int : 472 ms NORMAL SINUS RHYTHM NORMAL ECG NO PREVIOUS ECGS AVAILABLE Confirmed by BLANCO GUERRERO MD ([id number]) on 08/28/2017 4:02:16 PM Referred By: Confirmed By:BLANCO GUERRERO MD
[2017-08-28] MEDS ORDERED: CHLORHEXIDINE GLUCONATE 4% CLEANSER FOR DECOLONIZATION TP SCH (22:00)
--- NOTE | 2017-08-28 22:49 | DS ---
Physical Exam: SUBJECTIVE: Patient seen and examined OBJECTIVE: Vital Signs Period Temp Pulse Resp BP Sys/Maria Pulse Ox Last 24 Hr 98.7 F-103 F 77-95 18-22 105-118/64-89 95-100 PHYSICAL EXAM GENERAL: The patient is awake, alert, and fully oriented, in no acute distress. HEAD: Normal with no signs of trauma. EYES: PERRL, extraocular movements intact, sclera anicteric, conjunctiva clear. ENT: Ears normal, nares patent, oropharynx clear without exudates, moist mucous membranes. NECK: Trachea midline, full range of motion, supple. LUNGS: Breath sounds equal, clear to auscultation bilaterally, no wheezes, no crackles, no accessory muscle use. HEART: Regular rate and rhythm, S1, S2 without murmur, rub or gallop. ABDOMEN: Soft, nontender, nondistended, normoactive bowel sounds, no guarding, no rebound, no hepatosplenomegaly, no masses. EXTREMITIES: 2+ pulses, warm, well-perfused, no edema. NEUROLOGICAL: Cranial nerves II through XII grossly intact. Normal speech, gait not observed. PSYCH: Normal mood, normal affect. SKIN: Warm, dry, normal turgor, no rashes or lesions noted. LABS Laboratory Results - last 24 hr 08/27/17 08/28/17 08/28/17 03:01 01:29 01:29 WBC 10.5 H Corrected WBC (auto) 9.05 RBC 1.23 L Hgb 3.9 L* Hct 11.7 L MCV 94.9 MCH 31.8 MCHC 33.6 RDW 16.0 H Plt Count 14 L* MPV 10.1 Total Counted Neutrophils % No Result Required. Neutrophils % (Manual) 48.3 Band Neutrophils % 0.0 Lymphocytes % No Result Required. Lymphocytes % (Manual) 42.5 H Monocytes % (Manual) 5 Eosinophils % (Manual) 0.0 Basophils % (Manual) 0.0 Myelocytes % (Man) 0 Promyelocytes % (Man) 0 Blast Cells % (Manual) 0 Nucleated RBC % 16 H* Metamyelocytes 1 Hypochromia 3+ Platelet Estimate Decreased Polychromasia 2+ Poikilocytosis 1+ Basophilic Stippling 2+ Anisocytosis 3+ Microcytosis 2+ Macrocytosis 0 Target Cells 1+ Tear Drop Cells 1+ Fragmented RBCs 1+ Schistocytes 3+ Retic Count PT with INR 17.50 H INR 1.55 H PTT (Actin FS) 27.1 Fibrinogen D-Dimer Sodium Potassium Chloride Carbon Dioxide Anion Gap BUN Creatinine Creat Clearance w eGFR Random Glucose Lactic Acid Calcium Phosphorus Magnesium Total Bilirubin Direct Bilirubin AST ALT Alkaline Phosphatase LD Total Creatine Kinase Troponin I B-Natriuretic Peptide Total Protein Albumin Lipase TSH Urine Color Jing Urine Appearance Clear Urine pH 5.0 Ur Specific [place] 1.013 Urine Protein Negative Urine Glucose (UA) Negative Urine Ketones Negative Urine Blood Negative Urine Nitrite Negative Urine Bilirubin Negative Urine Urobilinogen 4.0 e.u/dl Ur Leukocyte Esterase Negative Stool Occult Blood Acetaminophen HIV 1&2 Antibody Screen HIV P24 Antigen Blood Type Antibody Screen Direct Antiglob Test Crossmatch 08/28/17 08/28/17 08/28/17 01:29 01:29 01:29 WBC Corrected WBC (auto) RBC Hgb Hct MCV MCH MCHC RDW Plt Count MPV Total Counted Neutrophils % Neutrophils % (Manual) Band Neutrophils % Lymphocytes % Lymphocytes % (Manual) Monocytes % (Manual) Eosinophils % (Manual) Basophils % (Manual) Myelocytes % (Man) Promyelocytes % (Man) Blast Cells % (Manual) Nucleated RBC % Metamyelocytes Hypochromia Platelet Estimate Polychromasia Poikilocytosis Basophilic Stippling Anisocytosis Microcytosis Macrocytosis Target Cells Tear Drop Cells Fragmented RBCs Schistocytes Retic Count PT with INR INR PTT (Actin FS) Fibrinogen D-Dimer Sodium 132 L Potassium 4.2 Chloride 99 Carbon Dioxide 22 Anion Gap 11 BUN 28 H Creatinine 1.8 H Creat Clearance w eGFR 40.82 Random Glucose 112 H Lactic Acid Calcium 7.5 L Phosphorus Magnesium Total Bilirubin 2.3 H Direct Bilirubin AST 27 ALT 29 Alkaline Phosphatase 59 LD Total Creatine Kinase Troponin I B-Natriuretic Peptide 436.02 H Total Protein 6.3 L Albumin 2.9 L Lipase 224 TSH Urine Color Urine Appearance Urine pH Ur Specific [place] Urine Protein Urine Glucose (UA) Urine Ketones Urine Blood Urine Nitrite Urine Bilirubin Urine Urobilinogen Ur Leukocyte Esterase Stool Occult Blood Acetaminophen HIV 1&2 Antibody Screen HIV P24 Antigen Blood Type A POSITIVE Antibody Screen Negative Direct Antiglob Test Crossmatch See Detail 08/28/17 08/28/17 08/28/17 01:29 01:29 01:29 WBC Corrected WBC (auto) RBC Hgb Hct MCV MCH MCHC RDW Plt Count MPV Total Counted Neutrophils % Neutrophils % (Manual) Band Neutrophils % Lymphocytes % Lymphocytes % (Manual) Monocytes % (Manual) Eosinophils % (Manual) Basophils % (Manual) Myelocytes % (Man) Promyelocytes % (Man) Blast Cells % (Manual) Nucleated RBC % Metamyelocytes Hypochromia Platelet Estimate Polychromasia Poikilocytosis Basophilic Stippling Anisocytosis Microcytosis Macrocytosis Target Cells Tear Drop Cells Fragmented RBCs Schistocytes Retic Count PT with INR INR PTT (Actin FS) Fibrinogen 470.0 D-Dimer Sodium Potassium Chloride Carbon Dioxide Anion Gap BUN Creatinine Creat Clearance w eGFR Random Glucose Lactic Acid Calcium Phosphorus Magnesium Total Bilirubin Direct Bilirubin AST ALT Alkaline Phosphatase LD Total 1101 H Creatine Kinase 67 Troponin I 0.02 B-Natriuretic Peptide Total Protein Albumin Lipase TSH Urine Color Urine Appearance Urine pH Ur Specific [place] Urine Protein Urine Glucose (UA) Urine Ketones Urine Blood Urine Nitrite Urine Bilirubin Urine Urobilinogen Ur Leukocyte Esterase Stool Occult Blood Acetaminophen HIV 1&2 Antibody Screen HIV P24 Antigen Blood Type Antibody Screen Direct Antiglob Test Crossmatch 08/28/17 08/28/17 08/28/17 01:29 02:38 02:45 WBC Corrected WBC (auto) RBC Hgb Hct MCV MCH MCHC RDW Plt Count MPV Total Counted Neutrophils % Neutrophils % (Manual) Band Neutrophils % Lymphocytes % Lymphocytes % (Manual) Monocytes % (Manual) Eosinophils % (Manual) Basophils % (Manual) Myelocytes % (Man) Promyelocytes % (Man) Blast Cells % (Manual) Nucleated RBC % Metamyelocytes Hypochromia Platelet Estimate Polychromasia Poikilocytosis Basophilic Stippling Anisocytosis Microcytosis Macrocytosis Target Cells Tear Drop Cells Fragmented RBCs Schistocytes Retic Count PT with INR INR PTT (Actin FS) Fibrinogen D-Dimer Sodium Potassium Chloride Carbon Dioxide Anion Gap BUN Creatinine Creat Clearance w eGFR Random Glucose Lactic Acid Calcium Phosphorus Magnesium Total Bilirubin Direct Bilirubin 1.1 H AST ALT Alkaline Phosphatase LD Total Creatine Kinase Troponin I B-Natriuretic Peptide Total Protein Albumin Lipase TSH Urine Color Urine Appearance Urine pH Ur Specific [place] Urine Protein Urine Glucose (UA) Urine Ketones Urine Blood Urine Nitrite Urine Bilirubin Urine Urobilinogen Ur Leukocyte Esterase Stool Occult Blood Positive Acetaminophen HIV 1&2 Antibody Screen HIV P24 Antigen Blood Type A POSITIVE Antibody Screen Direct Antiglob Test Crossmatch 08/28/17 08/28/17 08/28/17 03:19 03:19 03:21 WBC 10.1 H Corrected WBC (auto) RBC 1.08 L Hgb 3.4 L* D Hct 10.2 L MCV 94.8 MCH 31.6 MCHC 33.4 RDW 16.4 H Plt Count 12 L* MPV 9.8 Total Counted Neutrophils % Neutrophils % (Manual) Band Neutrophils % Lymphocytes % Lymphocytes % (Manual) Monocytes % (Manual) Eosinophils % (Manual) Basophils % (Manual) Myelocytes % (Man) Promyelocytes % (Man) Blast Cells % (Manual) Nucleated RBC % Metamyelocytes Hypochromia Platelet Estimate Polychromasia Poikilocytosis Basophilic Stippling Anisocytosis Microcytosis Macrocytosis Target Cells Tear Drop Cells Fragmented RBCs Schistocytes Retic Count 10.50 H* PT with INR INR PTT (Actin FS) Fibrinogen D-Dimer Sodium Potassium Chloride Carbon Dioxide Anion Gap BUN Creatinine Creat Clearance w eGFR Random Glucose Lactic Acid Calcium Phosphorus Magnesium Total Bilirubin Direct Bilirubin AST ALT Alkaline Phosphatase LD Total Creatine Kinase Troponin I B-Natriuretic Peptide Total Protein Albumin Lipase TSH Urine Color Urine Appearance Urine pH Ur Specific [place] Urine Protein Urine Glucose (UA) Urine Ketones Urine Blood Urine Nitrite Urine Bilirubin Urine Urobilinogen Ur Leukocyte Esterase Stool Occult Blood Acetaminophen <2.000 HIV 1&2 Antibody Screen Negative HIV P24 Antigen Negative Blood Type Antibody Screen Direct Antiglob Test Crossmatch 08/28/17 08/28/17 08/28/17 03:21 03:35 03:54 WBC Corrected WBC (auto) RBC Hgb Hct MCV MCH MCHC RDW Plt Count MPV Total Counted Neutrophils % Neutrophils % (Manual) Band Neutrophils % Lymphocytes % Lymphocytes % (Manual) Monocytes % (Manual) Eosinophils % (Manual) Basophils % (Manual) Myelocytes % (Man) Promyelocytes % (Man) Blast Cells % (Manual) Nucleated RBC % Metamyelocytes Hypochromia Platelet Estimate Polychromasia Poikilocytosis Basophilic Stippling Anisocytosis Microcytosis Macrocytosis Target Cells Tear Drop Cells Fragmented RBCs Schistocytes Retic Count PT with INR INR PTT (Actin FS) Fibrinogen D-Dimer 2377 H Sodium Potassium Chloride Carbon Dioxide Anion Gap BUN Creatinine Creat Clearance w eGFR Random Glucose Lactic Acid Calcium Phosphorus Magnesium Total Bilirubin Direct Bilirubin AST ALT Alkaline Phosphatase LD Total Creatine Kinase Troponin I B-Natriuretic Peptide Total Protein Albumin Lipase TSH Urine Color Jing Urine Appearance Clear Urine pH 5.0 Ur Specific [place] 1.013 Urine Protein Negative Urine Glucose (UA) Negative Urine Ketones Negative Urine Blood Negative Urine Nitrite Negative Urine Bilirubin Negative Urine Urobilinogen 4.0 e.u/dl Ur Leukocyte Esterase Negative Stool Occult Blood Acetaminophen HIV 1&2 Antibody Screen HIV P24 Antigen Blood Type Antibody Screen Direct Antiglob Test Negative Crossmatch See Detail 08/28/17 08/28/17 08/28/17 03:57 10:45 10:45 WBC 14.2 H D Corrected WBC (auto) 10.68 RBC 1.70 L D Hgb 5.3 L* D Hct 15.3 L D MCV 90.1 MCH 31.2 MCHC 34.7 RDW 16.0 H Plt Count 35 L* D MPV 7.9 D Total Counted 100 Neutrophils % No Result Required. Neutrophils % (Manual) 72.0 D Band Neutrophils % Lymphocytes % No Result Required. Lymphocytes % (Manual) 19.0 D Monocytes % (Manual) 8 Eosinophils % (Manual) Basophils % (Manual) Myelocytes % (Man) Promyelocytes % (Man) Blast Cells % (Manual) Nucleated RBC % 33 H* Metamyelocytes Hypochromia Platelet Estimate Polychromasia 1+ Poikilocytosis Basophilic Stippling Anisocytosis 1+ Microcytosis 1+ Macrocytosis 1+ Target Cells Tear Drop Cells Fragmented RBCs Schistocytes Retic Count PT with INR INR PTT (Actin FS) Fibrinogen D-Dimer Sodium 133 L Potassium 4.1 Chloride 102 Carbon Dioxide 22 Anion Gap 9 BUN 25 H Creatinine 1.5 H Creat Clearance w eGFR 50.38 Random Glucose 104 Lactic Acid 1.3 Calcium 7.1 L Phosphorus 2.9 Magnesium 2.2 Total Bilirubin 4.3 H D Direct Bilirubin AST 27 ALT 27 Alkaline Phosphatase 62 LD Total Creatine Kinase Troponin I B-Natriuretic Peptide Total Protein 5.7 L Albumin 2.6 L Lipase TSH Urine Color Urine Appearance Urine pH Ur Specific [place] Urine Protein Urine Glucose (UA) Urine Ketones Urine Blood Urine Nitrite Urine Bilirubin Urine Urobilinogen Ur Leukocyte Esterase Stool Occult Blood Acetaminophen HIV 1&2 Antibody Screen HIV P24 Antigen Blood Type Antibody Screen Direct Antiglob Test Crossmatch 08/28/17 08/28/17 10:45 10:45 WBC Corrected WBC (auto) RBC Hgb Hct MCV MCH MCHC RDW Plt Count MPV Total Counted Neutrophils % Neutrophils % (Manual) Band Neutrophils % Lymphocytes % Lymphocytes % (Manual) Monocytes % (Manual) Eosinophils % (Manual) Basophils % (Manual) Myelocytes % (Man) Promyelocytes % (Man) Blast Cells % (Manual) Nucleated RBC % Metamyelocytes Hypochromia Platelet Estimate Polychromasia Poikilocytosis Basophilic Stippling Anisocytosis Microcytosis Macrocytosis Target Cells Tear Drop Cells Fragmented RBCs Schistocytes Retic Count PT with INR INR PTT (Actin FS) Fibrinogen D-Dimer Sodium Potassium Chloride Carbon Dioxide Anion Gap BUN Creatinine Creat Clearance w eGFR Random Glucose Lactic Acid 1.3 Calcium Phosphorus Magnesium Total Bilirubin Direct Bilirubin AST ALT Alkaline Phosphatase LD Total Creatine Kinase Troponin I B-Natriuretic Peptide Total Protein Albumin Lipase TSH 5.72 H Urine Color Urine Appearance Urine pH Ur Specific [place] Urine Protein Urine Glucose (UA) Urine Ketones Urine Blood Urine Nitrite Urine Bilirubin Urine Urobilinogen Ur Leukocyte Esterase Stool Occult Blood Acetaminophen HIV 1&2 Antibody Screen HIV P24 Antigen Blood Type Antibody Screen Direct Antiglob Test Crossmatch HOSPITAL COURSE: Date of Admission:08/28/17 Date of Discharge: 08/28/17 Discharge Summary Reason For Visit: THROMBOCYTOPENIA ANEMIA Condition: Stable - Instructions Disposition: TRANSFER ACUTE CARE/OTHER HOSP - Home Medications Comprehensive Discharge Medication List: Ambulatory Orders NK [No Known Home Medication] 08/28/17
[2017-08-29 06:08] LABS: HEP.C VIRUS AB 0.1 s/co ratio (0.0-0.9)
[2017-09-01 00:07] LABS: ADAMTS13 ACTIVITY 31.3 % (>66.8)
== END 2017-08-28 13:30 | disposition short-term general hospital (02) | DRG 871 ==
LOC: JER 21:24 → JERBED 08-28 04:38 → JICU 08-28 08:06
PROVIDERS: ADMIT Internal Medicine; ATTEND Internal Medicine
DX: A41.9 Sepsis, unspecified organism (principal); M31.1 Thrombotic microangiopathy; N17.9 Acute kidney failure, unspecified; K81.0 Acute cholecystitis; E87.1 Hypo-osmolality and hyponatremia; I10 Essential (primary) hypertension; M54.89 Other dorsalgia; G58.9 Mononeuropathy, unspecified; R00.0 Tachycardia, unspecified; R50.9 Fever, unspecified; E86.0 Dehydration; R16.0 Hepatomegaly, not elsewhere classified; D18.09 Hemangioma of other sites
CPT/HCPCS: 36415; 36430; 71045-TC-FY; 74176-TC; 76705-TC; 80053; 80074; 80307; 81003; 82248; 82272; 82550; 83010; 83605; 83615; 83690; 83735; 83880; 84100; 84443; 84484; 85025; 85027; 85044; 85379; 85384; 85397; 85610; 85730; 86850; 86880; 86900; 86901; 86922; 87040; 87086; 87207; 87389; 87804; 93005; 93010; 99284-25; J0131; J7030; P9034; P9038; P9058